=== PATIENT | female | born 1950 | race African-American/Black ===

== ENCOUNTER 2016-10-02 06:51 | Emergency (ER) | payer MEDICARE, MEDICAID ==
[~2016-10-02] VITALS: Ht 162.6 cm; Wt 90.0 kg
[2016-10-02] MEDS ORDERED: ONDANSETRON HCL 4MG/2ML VIAL IV STA (09:28)
[2016-10-02 09:51] LABS: BASOPHILS % 0.5 % (0.0-2.0); EOSINOPHILS % 0.6 % (0.0-5.0); HEMATOCRIT. 45.1 % (36.0-48.0); HEMOGLOBIN. 14.7 g/dL (12.0-16.0); LYMPHOCYTES % 14.6 % (20.0-50.0); MEAN CORPUSCULAR HEMOGLOBIN 25.8 pg (28.0-32.0); MEAN CORPUSCULAR VOLUME 79.3 fL (81.0-99.0); MEAN PLATELET VOLUME 10.3 fl (7.4-10.4); NEUTROPHILS % 79.3 % (40.0-76.0); PLATELET 128 x1000/uL (130-400); RED BLOOD CELL COUNT 5.69 mill/uL (4.2-5.4); RED CELL DISTRIBUTION WIDTH 15.1 % (11.6-14.6)
[2016-10-02 10:08] LABS: CARBON DIOXIDE 31 mEq/L (21-32); CHLORIDE 101 mEq/L (98-107); TROPONIN I < 0.02 ng/mL (0.00-0.04)
[2016-10-02] MEDS ORDERED: SODIUM CHLORIDE 0.9% 1,000 ML IV ONE (11:24)
[2016-10-02] MEDS ORDERED: FAMOTIDINE 20MG/2ML VIAL IV ONE (12:00)
[2016-10-02 12:38] VITALS: BP 150/71
[2016-10-02 12:44] LABS: CLARITY URINE CLEAR (CLEAR); COLOR URINE YELLOW (YELLOW); GLUCOSE URINE NEGATIVE (NEGATIVE); PH URINE 7.5 (4.5-8.0); PROTEIN URINE NEGATIVE (NEGATIVE); SPECIFIC GRAVITY URINE 1.022 (1.005-1.030)
[2016-10-02 12:45] LABS: KETONES URINE NEGATIVE (NEGATIVE); LEUKOCYTE ESTERASE URINE NEGATIVE (NEGATIVE); NITRITE URINE NEGATIVE (NEGATIVE); OCCULT BLOOD URINE NEGATIVE (NEGATIVE)
[2016-10-02] MEDS ORDERED: ACETAMINOPHEN 325MG TABLET PO ONE (13:30)
== END 2016-10-02 13:38 | disposition home or self-care (01) ==
LOC: ER 08:13
DX: K52.9 Noninfective gastroenteritis and colitis, unspecified (principal); R18.8 Other ascites; J45.909 Unspecified asthma, uncomplicated; I10 Essential (primary) hypertension; Z90.710 Acquired absence of both cervix and uterus; Z88.2 Allergy status to sulfonamides
CPT/HCPCS: 36415; 71010; 74176; 80053; 81003; 83690; 84484; 85025; 93005; 96361; 96374; 96375; 99285; J2405; J3490; J7030

== ENCOUNTER 2018-05-19 23:55 | Emergency (ER) | payer MEDICARE, MEDICAID ==
[~2018-05-19] VITALS: Ht 162.6 cm; Wt 74.5 kg
[2018-05-20 05:17] LABS: CHLORIDE 106 mEq/L (98-107)
[2018-05-20 05:24] LABS: BASOPHILS % 0.8 % (0.0-2.0); EOSINOPHILS % 0.7 % (0.0-5.0); HEMATOCRIT. 41.6 % (36.0-48.0); HEMOGLOBIN. 13.6 g/dL (12.0-16.0); LYMPHOCYTES % 24.1 % (20.0-50.0); MEAN CORPUSCULAR HEMOGLOBIN 26.9 pg (28.0-32.0); MEAN CORPUSCULAR VOLUME 82.5 fL (81.0-99.0); MEAN PLATELET VOLUME 10.2 fl (7.4-10.4); NEUTROPHILS % 67.4 % (40.0-76.0); PLATELET 134 x1000/uL (130-400); RED BLOOD CELL COUNT 5.04 mill/uL (4.2-5.4); RED CELL DISTRIBUTION WIDTH 14.4 % (11.6-14.6)
[2018-05-20 06:15] VITALS: BP 147/78
== END 2018-05-20 06:17 | disposition home or self-care (01) ==
LOC: ER 23:55
DX: F41.9 Anxiety disorder, unspecified (principal); R00.2 Palpitations; I10 Essential (primary) hypertension; Z90.710 Acquired absence of both cervix and uterus; Z88.2 Allergy status to sulfonamides
CPT/HCPCS: 36415; 71045; 83880; 84484; 93005; 99284

== ENCOUNTER 2019-01-07 15:45 | Inpatient (IN) | payer MEDICARE, MEDICAID ==
[~2019-01-07] VITALS: Ht 162.6 cm; Wt 80.7 kg
[2019-01-07] MEDS ORDERED: KETOROLAC 30MG/ML VIAL IV STA (21:35)
[2019-01-07] MEDS ORDERED: SODIUM CHLORIDE 0.9% 1,000 ML IV ONE (21:35)
[2019-01-07] MEDS ORDERED: AMLODIPINE 5MG TABLET PO ONE (21:45)
[2019-01-07 22:55] LABS: BASOPHILS % 0.8 % (0.0-2.0); EOSINOPHILS % 1.5 % (0.0-5.0); HEMATOCRIT. 44.2 % (36.0-48.0); HEMOGLOBIN. 14.6 g/dL (12.0-16.0); LYMPHOCYTES % 21.3 % (20.0-50.0); MEAN CORPUSCULAR HEMOGLOBIN 27.8 pg (28.0-32.0); MEAN PLATELET VOLUME 10.2 fl (7.4-10.4); MONOCYTES % 8.9 % (2.0-8.0); NEUTROPHILS % 67.5 % (40.0-76.0); PLATELET 175 x1000/uL (130-400); RED BLOOD CELL COUNT 5.26 mill/uL (4.2-5.4); RED CELL DISTRIBUTION WIDTH 14.2 % (11.6-14.6)
[2019-01-07 22:59] LABS: CHLORIDE 100 mEq/L (98-107)
[2019-01-07 23:03] LABS: INR 1.1; PARTIAL THROMBOPLASTIN TIME 26.4 sec (23.4-31.0); PROTHROMBIN TIME 11.1 sec (9.6-11.0)
[2019-01-07] MEDS ORDERED: FUROSEMIDE 40MG/4ML VIAL IV ONE (23:30)
[2019-01-07] MEDS ORDERED: NITROGLYCERIN OINT 1GM/INCH UDPKT TD ONE (23:30)
[2019-01-07] MEDS ORDERED: ASPIRIN 81MG TABLET PO ONE (23:30)
[2019-01-08 03:00] VITALS: BP 154/70
[2019-01-08] MEDS ORDERED: BENA20TA10 PO (03:52)
[2019-01-08] MEDS ORDERED: HYDR25TA PO (03:52)
[2019-01-08] MEDS ORDERED: KETOROLAC 30MG/ML VIAL IV PRN (04:15)
[2019-01-08] MEDS: BENAZEPRIL 10MG TABLET PO SCH ×2 (09:00→10:36)
[2019-01-08] MEDS ORDERED: MEDICATION NOT ON FORMULARY EA (Benazepril Hcl 20 MG) PO SCH (09:00)
[2019-01-08] MEDS: HYDROCHLOROTHIAZIDE 25MG TABLET PO SCH ×2 (09:00→18:40)
[2019-01-08] MEDS: AMLODIPINE 5MG TABLET PO SCH ×2 (10:41→10:42)
[2019-01-08 20:00] VITALS: BP 118/72
[2019-01-09 00:10] VITALS: BP 119/69
[2019-01-09 04:00] VITALS: BP 128/74
[2019-01-09 09:32] LABS: CLARITY URINE CLEAR (CLEAR); COLOR URINE YELLOW (YELLOW); KETONES URINE NEGATIVE (NEGATIVE); LEUKOCYTE ESTERASE URINE NEGATIVE (NEGATIVE); NITRITE URINE NEGATIVE (NEGATIVE); OCCULT BLOOD URINE NEGATIVE (NEGATIVE); PH URINE 5.5 (4.5-8.0); PROTEIN URINE NEGATIVE (NEGATIVE); UROBILINOGEN URINE 0.2 E.U./dL (0.2-1.0)
[2019-01-09] MEDS: HYDROCHLOROTHIAZIDE 25MG TABLET PO SCH (09:56)
[2019-01-09] MEDS: BENAZEPRIL 10MG TABLET PO SCH (09:57)
[2019-01-09 11:26] LABS: BASOPHILS % 0.6 % (0.0-2.0); EOSINOPHILS % 1.3 % (0.0-5.0); HEMATOCRIT. 43.8 % (36.0-48.0); HEMOGLOBIN. 14.5 g/dL (12.0-16.0); LYMPHOCYTES % 21.9 % (20.0-50.0); MEAN CORPUSCULAR HEMOGLOBIN 27.9 pg (28.0-32.0); MEAN CORPUSCULAR VOLUME 84.4 fL (81.0-99.0); MEAN PLATELET VOLUME 10.5 fl (7.4-10.4); MONOCYTES % 11.2 % (2.0-8.0); PLATELET 172 x1000/uL (130-400); RED BLOOD CELL COUNT 5.19 mill/uL (4.2-5.4); RED CELL DISTRIBUTION WIDTH 13.9 % (11.6-14.6)
[2019-01-09 11:28] LABS: CHLORIDE 100 mEq/L (98-107)
[2019-01-09] MEDS ORDERED: ATOR10TA MT (12:10)
[2019-01-09 12:20] VITALS: BP 119/67
[2019-01-09 16:07] VITALS: BP 147/66
[2019-01-09 17:01] VITALS: BP 147/66
[2019-01-09 18:04] VITALS: BP 135/76
== END 2019-01-09 18:54 | disposition home or self-care (01) | DRG 194 ==
LOC: ER 15:45 → EDBEDREQ 01-08 00:18 → EDBEDREQTM 01-08 00:18 → EDBEDREQDT 01-08 00:18 → ENRESERV 01-08 01:56 → 8WST 01-08 02:47
PROVIDERS: ADMIT Internal Medicine; ATTEND Internal Medicine
DX: I11.0 Hypertensive heart disease with heart failure (principal); M16.12 Unilateral primary osteoarthritis, left hip; I50.9 Heart failure, unspecified; Z90.710 Acquired absence of both cervix and uterus; Z88.2 Allergy status to sulfonamides; Z68.30 Body mass index [BMI] 30.0-30.9, adult
CPT/HCPCS: 36415; 71045; 73502; 80048; 80061; 81003; 82962; 83880; 84443; 84484; 93005; 93306; 93970; 96374; 97161; 99285; J1885; J1940; J7030

== ENCOUNTER → 2022-02-06 | Day surgery (SDC) | payer MEDICARE, MEDICAID ==
[~2022-02-06] VITALS: Ht 160 cm; Wt 68.9 kg
[~2022-02-06] MED LIST: ASPI-1497 PO; ATOR10TA MT; BALANCED SALT IRRIG SOLN COMB1 500ML OP ONE; BENA-8 PO; CYCLOPENTOLATE HCL 1% OPHTH DROPS 2ML LEFTEYE NR; FENTANYL CITRATE/PF 50MCG/ML 2ML VIAL ONE; HYALURONATE SODIUM 10 MG/ML 0.55ML SYRINGE IO ONE; HYDR25TA PO; LACTATED RINGERS 1,000 ML IV SCH; MIDAZOLAM HCL 2 MG/2 ML VIAL ONE; PHENYLEPHRINE HCL 10% OPHTH DROPS 5ML LEFTEYE NR; TROPICAMIDE 1% OPHTH DROPS 15ML LEFTEYE NR; TRYPAN BLUE 0.5 ML DISP.SYRIN IO ONE
== END | disposition home or self-care (01) ==
LOC: OR 07:29
PROVIDERS: ATTEND Ophthalmology
DX: H25.22 Age-related cataract, morgagnian type, left eye (principal); I10 Essential (primary) hypertension; F41.9 Anxiety disorder, unspecified; Z79.82 Long term (current) use of aspirin; Z79.899 Other long term (current) drug therapy; Z98.890 Other specified postprocedural states; Z20.822 Contact with and (suspected) exposure to COVID-19
CPT/HCPCS: 66984; 87426; C9803; J2250; J3010; J3490; Q9957; V2632

== ENCOUNTER → 2022-09-25 | Day surgery (SDC) | payer MEDICARE, MEDICAID ==
[~2022-09-25] VITALS: Ht 162.6 cm; Wt 70.8 kg
[~2022-09-25] MED LIST changes: -ATOR10TA MT; +BALANCED SALT IRRIG SOLN COMB1 500ML OP NR; -BALANCED SALT IRRIG SOLN COMB1 500ML OP ONE; +CIPROFLOXACIN 0.3% OPHTH SOLN 2.5ML ONE; -CYCLOPENTOLATE HCL 1% OPHTH DROPS 2ML LEFTEYE NR; +CYCLOPENTOLATE HCL 1% OPHTH DROPS 2ML RIGHTEYE SCH; +LIDOCAINE HCL/PF 2% 20MG/ML 5 ML/VIAL ONE; +NEO/POLYMYX B SULF/DEXAMETH OPHTH OINT 3.5GM ONE; -PHENYLEPHRINE HCL 10% OPHTH DROPS 5ML LEFTEYE NR; +PHENYLEPHRINE HCL 10% OPHTH DROPS 5ML RIGHTEYE SCH; +PREDNISOLONE ACETATE 1% OPHTH DROPS 5ML ONE; +TETRACAINE 0.5% OPHTH DROPS 4ML ONE; -TROPICAMIDE 1% OPHTH DROPS 15ML LEFTEYE NR; +TROPICAMIDE 1% OPHTH DROPS 15ML RIGHTEYE SCH
== END | disposition home or self-care (01) ==
LOC: OR 08:45
PROVIDERS: ATTEND Ophthalmology
DX: H25.89 Other age-related cataract (principal); I10 Essential (primary) hypertension; J45.909 Unspecified asthma, uncomplicated; Z79.899 Other long term (current) drug therapy; Z98.890 Other specified postprocedural states; Z79.82 Long term (current) use of aspirin; Z88.8 Allergy status to other drugs, medicaments and biological substances
CPT/HCPCS: 66984; 82962; J3010; Q9957; J3490 ×2; J2250; A4217; Z7610 ×15; V2632